=== PATIENT | female | born 1995 | race Caucasian/White ===

== ENCOUNTER 2016-08-16 22:10 | Emergency (ER) | payer OTHER ==
[2016-08-16 22:18] VITALS: BP 138/90
--- NOTE | 2016-08-16 23:00 | RAD ---
Indication: Chest pain. 2 views of the chest including dual energy PA views demonstrate no mediastinal shift. Heart is of normal size and configuration. Lung newberry demonstrate no pleural fluid, pneumonia or pneumothorax. IMPRESSION: No active cardiopulmonary disease is noted.
--- NOTE | 2016-08-16 23:04 | RAD ---
Indication: Dizziness. CT of the brain was performed without IV contrast. Ventricular structures are midline. No midline shift is noted. The extraction spaces are unremarkable. There is no evidence of intracranial mass or hemorrhage. No other high or low density lesions identified. Mastoid air cells and paranasal sinuses are otherwise unremarkable. IMPRESSION: No intracranial mass or hemorrhage is noted.
[2016-08-16 23:29] LABS: Hematocrit 38 % (35-47); Hemoglobin 12.8 g/dl (12.0-16.0); Mean Corpuscular HGB Conc 34 g/dl (31-36); Mean Corpuscular Hemoglobin 32 pg (27-31); Mean Corpuscular Volume 93 fL (80-97); Mean Platelet Volume 10 um3 (7.4-10.4); Red Blood Count 4.06 10^6/ul (4.0-5.4); Red Cell Distribution Width 13 % (10.5-15); White Blood Count 5.5 10^3/ul (3.5-10.8)
[2016-08-16 23:44] LABS: ALT 9 U/L (7-52); AST 11 U/L (13-39); Alkaline Phosphatase 38 U/L (34-104); Anion Gap 5 mmol/L (2-11); Blood Urea Nitrogen 12 mg/dL (6-24); CO2 Carbon Dioxide 26 mmol/L (22-32); Calcium 9.4 mg/dL (8.6-10.3); Chloride 105 mmol/L (101-111); EGFR African American 126.7 (>60); EGFR Non-African American 98.5 (>60); Globulin 2.6 g/dL (2-4); Glucose 102 mg/dL (70-100); Magnesium 1.9 mg/dL (1.9-2.7); Potassium 3.9 mmol/L (3.5-5.0); Sodium 136 mmol/L (133-145); Total Protein 6.6 g/dL (6.4-8.9)
[2016-08-17 00:12] LABS: TSH (Thyroid Stimulating Horm) 3.44 mcIU/mL (0.34-5.60)
--- NOTE | 2016-08-17 00:42 | ED ---
López Pineda Aidan, scribed for Anthony Block on 08/16/16 at 2256 . Neurological HPI - HPI Summary HPI Summary: 20 y/o female presents to the ED via EMS with a complaint of an acute, moderate seizure-like episode that occurred today just [employer]. Pain associated with the episode was 3/10. According to the patient, he episode began with numbness in her hands followed by loss of vision. When the patient then called her mother to inform her of what was happening, she was unable to speak. She then dropped the phone. The patients friend claimed that she had hand tremors throughout the duration of the episode, which lasted roughly 3-5 minutes. Associated symptoms include some mild CP. There was no reported LOC. Pt denies any anxiety, Hx of panic attacks, SOB, or DIAZ. - History of Current Complaint Chief Complaint: EDSeizure Stated Complaint: TREMORS Time Seen by Provider: 08/16/16 22:16 Hx Obtained From: Patient, Family/Route [employer] - Pt's friends Onset/Duration: Sudden Onset, Resolved Timing: Intermittent Episodes Lasting: - 3-5 minutes Onset Severity: Moderate Current Severity: Moderate Seizure Severity: Moderate - if this episode was indeed a seizure Number of Seizures: 1 - assuming that this episode was a seizure Neurological Deficit Location: RUE - hand tremors and numbness, LUE - hand tremors and numbness Pain Intensity: 3 Pain Scale Used: 0-10 Numeric Character: Numbness/Tingling - in hands bilaterally, Impaired Speech, Visual Changes - loss of vision during episode, Other: - hand tremors, mild CP Episode Lasting: Seconds/Minutes - 3-5 minutes Syncope Context: Witnessed, Loss of Consciousness: No, At Rest Frequency: Episodes x___ - 1, Episodes Lasting ____ (in Mins/Days/Weeks/Years) - 3-5 minuites Syncope Location: Partial Extremities - hands Seizure Character: Partial (Specify) - see HPI Aggravating: Unknown Alleviating: Unknown Associated Signs and Symptoms: Positive: Impaired Speech, Numbness, Chest Pain. Negative: Negative - hand tremors, loss of vision - Allergy/Home Medications Allergies/Adverse Reactions: Allergies Allergy/AdvReac Type Severity Reaction Status Date / Time No Known Allergies Allergy Verified 01/26/16 13:21 PMH/Surg Hx/FS Hx/Imm Hx Endocrine/Hematology History: Denies: Hx Diabetes Infectious Disease History: No Infectious Disease History: Denies: Traveled Outside the [place] in Last 30 Days - Family History Known Family History: Negative: Cardiac Disease, Diabetes - Social History Occupation: Student Lives: Alone Alcohol Use: Occasionally Hx Substance Use: No Substance Use Type: Reports: None Hx Tobacco Use: No Smoking Status (MU): Never Smoked Tobacco Review of Systems Constitutional: Negative Positive: Other - loss of vision during episode. Negative: Photophobia, Blurred Vision, Diplopia, Drainage, Erythema ENT: Negative Positive: Chest Pain. Negative: Palpitations Respiratory: Negative Gastrointestinal: Negative Genitourinary: Negative Musculoskeletal: Negative Negative: Arthralgia, Myalgia, Decreased ROM, Edema Skin: Negative Neurological: Other Positive: Numbness - in hands, Slurred Speech - inability to speak/ stuttered speech. Negative: Headache, Weakness, Paresthesia, Syncope Psychological: Normal All Other Systems Reviewed And Are Negative: Yes Physical Exam Triage Information Reviewed: Yes Vital Signs On Initial Exam: Initial Vitals Temp Pulse Resp BP Pulse Ox 99.3 F 81 18 138/90 100 08/16/16 22:13 08/16/16 22:13 08/16/16 22:13 08/16/16 22:13 08/16/16 22:13 Vital Signs Reviewed: Yes Appearance: Positive: Well-Appearing, No Pain Distress Skin: Positive: Warm, Skin Color Reflects Adequate Perfusion, Dry Head/Face: Positive: Normal Head/Face Inspection Eyes: Positive: EOMI, OLEGARIO ENT: Positive: Normal ENT inspection Neck: Positive: Supple, Nontender Respiratory/Lung Sounds: Positive: Clear to Auscultation, Breath Sounds Present Cardiovascular: Positive: Normal, RRR, Pulses are Symmetrical in both Upper and Lower Extremities Abdomen Description: Positive: Nontender, Soft Bowel Sounds: Positive: Present Musculoskeletal: Positive: Normal, Strength/ROM Intact Neurological: Positive: Normal, Sensory/Motor Intact, Alert, Oriented to Person Place, Time Psychiatric: Positive: Normal, Affect/Mood Appropriate AVPU Assessment: Alert Diagnostics - Vital Signs Vital Signs Temp Pulse Resp BP Pulse Ox 08/16/16 22:13 99.3 F 81 18 138/90 100 - Laboratory Lab Results: Lab Results 08/16/16 08/16/16 08/16/16 Range/Units 23:14 23:14 23:14 WBC 5.5 (3.5-10.8) 10^3/ul RBC 4.06 (4.0-5.4) 10^6/ul Hgb 12.8 (12.0-16.0) g/dl Hct 38 (35-47) % MCV 93 (80-97) fL MCH 32 H (27-31) pg MCHC 34 (31-36) g/dl RDW 13 (10.5-15) % Plt Count 190 (150-450) 10^3/ul MPV 10 (7.4-10.4) um3 Neut % (Auto) 51.3 (38-83) % Lymph % (Auto) 37.7 (25-47) % Lipscomb % (Auto) 8.9 (1-9) % Eos % (Auto) 1.7 (0-6) % Baso % (Auto) 0.4 (0-2) % Absolute Neuts (auto) 2.8 (1.5-7.7) 10^3/ul Absolute Lymphs (auto) 2.1 (1.0-4.8) 10^3/ul Absolute Monos (auto) 0.5 (0-0.8) 10^3/ul Absolute Eos (auto) 0.1 (0-0.6) 10^3/ul Absolute Basos (auto) 0 (0-0.2) 10^3/ul Absolute Nucleated RBC 0 10^3/ul Nucleated RBC % 0.1 INR (Anticoag Therapy) 0.92 (0.89-1.11) APTT 26.0 (26.0-36.3) seconds D-Dimer, Quantitative < 200 (Less Than 230) ng/mL Sodium 136 (133-145) mmol/L Potassium 3.9 (3.5-5.0) mmol/L Chloride 105 (101-111) mmol/L Carbon Dioxide 26 (22-32) mmol/L Anion Gap 5 (2-11) mmol/L BUN 12 (6-24) mg/dL Creatinine 0.75 (0.51-0.95) mg/dL Est GFR ( Amer) 126.7 (>60) Est GFR (Non-Af Amer) 98.5 (>60) BUN/Creatinine Ratio 16.0 (8-20) Glucose 102 H (70-100) mg/dL Calcium 9.4 (8.6-10.3) mg/dL Magnesium 1.9 (1.9-2.7) mg/dL Total Bilirubin 0.30 (0.2-1.0) mg/dL AST 11 L (13-39) U/L ALT 9 (7-52) U/L Alkaline Phosphatase 38 (34-104) U/L Troponin I 0.00 (<0.04) ng/mL Total Protein 6.6 (6.4-8.9) g/dL Albumin 4.0 (3.2-5.2) g/dL Globulin 2.6 (2-4) g/dL Albumin/Globulin Ratio 1.5 (1-3) TSH 3.44 (0.34-5.60) mcIU/mL Beta HCG, Quant < 0.60 mIU/mL Result Diagrams: 08/16/16 23:14 08/16/16 23:14 Lab Statement: Any lab studies that have been ordered have been reviewed, and results considered in the medical decision making process. - Radiology CHEST X-RAY Xray Interpretation: No Acute Changes - IMPRESSION: No active cardiopulmonary disease Radiology Interpretation Completed By: Radiologist - CT BRAIN CT CT Interpretation: No Acute Changes - IMPRESSION: No intracranial mass or hemorrhage is noted. CT Interpretation Completed By: Radiologist - EKG EKG 2300 Cardiac Rate: NL - 65 BPM EKG Rhythm: Sinus Rhythm EKG Interpretation: NORMAL SINUS RHYTHM Re-Evaluation - Re-Evaluation First Eval Re-Evaluation Time: 00:18 - The patient is feeling much better Change: Improved Course/Dx - Course Course Of Treatment: 20 y/o female presents with an episode of numbness in her hands, loss of vision, and an inability to speak. Tests were negative. Recommended to follow up with a neuologist to r/o if szs - Diagnoses Provider Diagnoses: medical screening, normal physical exam Discharge - Discharge Plan Condition: Stable Disposition: HOME Discharge Disposition Comment: Please follow up with neurology within 3 days. Referrals: No Primary Care Phys,NOPCP [Primary Care Provider] - Jesse Hendrickson MD [Medical Doctor] - The documentation as recorded by the López dawkins Aidan accurately reflects the service I personally performed and the decisions made by , Anthony Block.
== END 2016-08-17 00:31 | disposition home or self-care (01) ==
LOC: ED 22:10
DX: R07.9 Chest pain, unspecified (principal); R47.81 Slurred speech; Z13.9 Encounter for screening, unspecified
CPT/HCPCS: 36415; 70450; 71020; 80053; 83735; 84443; 84484; 84702; 85025; 85379; 85610; 85730; 93005; 99282